=== PATIENT | female | born 1995 | race Caucasian/White ===

== ENCOUNTER 2018-05-12 16:45 | Emergency (ER) | payer MEDICAID ==
[~2018-05-12] VITALS: Ht 154.9 cm; Wt 72.0 kg
[2018-05-12] MEDS ORDERED: KETOROLAC 30MG/ML VIAL IV STA (20:12)
[2018-05-12 20:26] LABS: BASOPHILS % 0.7 % (0.0-2.0); EOSINOPHILS % 1.3 % (0.0-5.0); HEMATOCRIT. 46.5 % (36.0-48.0); MEAN CORPUSCULAR HEMOGLOBIN 30.9 pg (28.0-32.0); MEAN CORPUSCULAR VOLUME 89.6 fL (81.0-99.0); MEAN PLATELET VOLUME 8.1 fl (7.4-10.4); PLATELET 268 x1000/uL (130-400); RED BLOOD CELL COUNT 5.18 mill/uL (4.2-5.4); RED CELL DISTRIBUTION WIDTH 13.3 % (11.6-14.6)
[2018-05-12 20:27] LABS: CHLORIDE 103 mEq/L (98-107)
[2018-05-12 21:13] LABS: CLARITY URINE TURBID (CLEAR); COLOR URINE YELLOW (YELLOW); KETONES URINE NEGATIVE (NEGATIVE); LEUKOCYTE ESTERASE URINE NEGATIVE (NEGATIVE); NITRITE URINE NEGATIVE (NEGATIVE); OCCULT BLOOD URINE NEGATIVE (NEGATIVE); PH URINE 7.5 (4.5-8.0); PROTEIN URINE NEGATIVE (NEGATIVE); SPECIFIC GRAVITY URINE 1.015 (1.005-1.030)
[2018-05-13 00:36] VITALS: BP 118/76
== END 2018-05-13 00:37 | disposition home or self-care (01) ==
LOC: ER 16:45
DX: R10.9 Unspecified abdominal pain (principal); E28.2 Polycystic ovarian syndrome
CPT/HCPCS: 36415; 74176; 76830; 76856; 80053; 81003; 81025; 83690; 85025; 96374; 99285; J1885; Z7610

== ENCOUNTER 2018-08-24 11:32 | Emergency (ER) | payer MEDICAID ==
[~2018-08-24] VITALS: Ht 154.9 cm; Wt 73.0 kg
[2018-08-24] MEDS ORDERED: IBUPROFEN 600MG TABLET PO ONE (15:00)
[2018-08-24] MEDS ORDERED: PREDNISONE 20MG TABLET PO ONE (15:00)
[2018-08-24 15:49] VITALS: BP 125/82
== END 2018-08-24 15:55 | disposition home or self-care (01) ==
LOC: ER 11:32
DX: J02.0 Streptococcal pharyngitis (principal); H60.92 Unspecified otitis externa, left ear
CPT/HCPCS: 99283; J7512